=== PATIENT | female | born 1950 | race Caucasian/White ===

== ENCOUNTER 2017-05-01 06:09 | Day surgery (SDC) | payer OTHER ==
[2017-04-30 16:37] VITALS: BMI 35.8
[2017-05-01] MEDS ORDERED: BUPIVACAINE HCL/PF 0.5% (5MG/ML) 10 ML VIAL ONE (07:33)
[2017-05-01] MEDS ORDERED: MIDAZOLAM HCL 2 MG/2 ML SINGLE DOSE VIAL ONE (07:52)
[2017-05-01] MEDS ORDERED: PROPOFOL 20 ML ONE ×2 (08:05→08:18)
[2017-05-01] MEDS ORDERED: KETOROLAC TROMETHAMINE 30 MG/1 ML VIAL ONE (08:15)
[2017-05-01] MEDS ORDERED: DEXAMETHASONE SOD PHOSPHATE 4 MG/1 ML VIAL ONE (08:16)
[2017-05-01] MEDS ORDERED: BUPIVACAINE HCL/PF 0.5% (5MG/ML) 10 ML VIAL IJ ONE (08:18)
[2017-05-01] MEDS ORDERED: LIDOCAINE 2%/EPINEPHRINE 1:100000 (50 ML MD VIAL) INF ONE (08:18)
[2017-05-01] MEDS ORDERED: GLYCOPYRROLATE 0.2 MG/1 ML VIAL ONE (08:27)
[2017-05-01] MEDS ORDERED: PROMETHAZINE HCL 25 MG/1 ML VIAL IVPUSH PRN (08:33)
[2017-05-01] MEDS ORDERED: oxyCODONE HCL 5 MG TABLET PO PRN (08:33)
[2017-05-01] MEDS ORDERED: ONDANSETRON 4 MG/2 ML VIAL IVPUSH PRN (08:33)
[2017-05-01] MEDS ORDERED: LACTATED RINGERS SOLUTION 1,000 ML IV SCH (08:45)
--- NOTE | 2017-05-01 09:07 | OP ---
Operative Note - Note: Operative Date: 05/01/17 Pre-Operative Diagnosis: internal derangement right knee Operation: arthroscopy right knee and partial medial meniscectomy and chondroplasty MFC, patella and trochlea Post-Operative Diagnosis: Same as Pre-op Surgeon: Sabino Boyer [employer] Supervisor: Connor Bai Anesthesia: General Operative Report Dictated: Yes
[2017-05-01 09:43] VITALS: TEMP 97.5
--- NOTE | 2017-05-01 10:02 | HP ---
[facility] - Chief Complaint Chief Complaint: right knee pain - Past Medical History Allergies/Adverse Reactions: Allergies Allergy/AdvReac Type Severity Reaction Status Date / Time No Known Drug Allergies Allergy Verified 05/01/17 06:37 - Current Medications Current Medications: Home Medications Medication Instructions Recorded Bupropion HCl [Forfivo Xl] 450 mg PO DAILY 04/30/17 Escitalopram Oxalate [Lexapro -] 30 mg PO DAILY 04/30/17 [facility] Physical Exam - Physical Examination Vital Signs: Vital Signs Period Temp Pulse Resp BP Sys/Jose Pulse Ox Last 24 Hr 97.5 F-97.6 F 60-89 16-18 114-130/62-79 95-99 Extremities: Other (+ joint line tenderness) [facility] Impression/Plan - Impression/Plan Impression: internal derangement right knee Operative Procedure: arthroscopy right knee Date to be Performed: 05/01/17
--- NOTE | 2017-05-01 10:24 | OP ---
DATE OF OPERATION: 05/01/2017 PREOPERATIVE DIAGNOSIS: Internal derangement, right knee. POSTOPERATIVE DIAGNOSIS: Internal derangement, right knee. PROCEDURE: Arthroscopy, right knee, partial medial meniscectomy, and chondroplasty of the medial femoral condyle, trochlea and patella. SURGICAL ATTENDING: Sabino Rondon MD [employer] REPRESENTATIVE: Connor Bai MD ANESTHESIA: General with LMA. CLOSURE: Nylon 4-0. COMPLICATIONS: None. CONDITION: To the recovery room in stable condition. DESCRIPTION OF PROCEDURE: The patient was taken to the operating room on May 01, 2017. General anesthesia with LMA was administered by the anesthesiologist. The right lower extremity was prepped and draped in the usual sterile fashion. Superolateral and mediolateral outflow portal sites were infiltrated with 1% Xylocaine with epinephrine. The superolateral portal was made with a 15-blade followed by a blunt trocar. The knee was aspirated and inflated with a cocktail of 10 mL of 1% Xylocaine, 10 mL of 0.5% Marcaine and 20 mL of arthroscopic saline. The mediolateral infrapatellar portal was then made with a 15-blade followed by a blunt trocar. The scope was placed in the lateral infrapatellar portal and suprapatellar pouch. The pouch was visualized to be clean. The medial and lateral gutters were visualized to be clean and the surface of the patella and trochlea had extensive degenerative changes. Any loose articular cartilage was debrided using the shaver. With valgus stress on the knee visualized, probed and found to have a complex tear of his posterior horn. This was debrided back to smooth, stable meniscal tissue with a meniscal biter and an arthroscopic shaver. The medial femoral condyle also had some changes essentially that were debrided using the shaver. At 90 degrees, the ACL was visualized, probed and found to be intact. In a [id number] position, the lateral compartment was seen. The lateral meniscus was visualized, probed and found to be intact. Lateral femoral condyle was found to be intact, as was the lateral tibial plateau. The knee was irrigated with copious amounts of irrigation. The portals were closed with 4-0 nylon. Prior to closure, 20 mL of 0.5% Marcaine was infused through the outflow portal for postoperative analgesia. A sterile pressure dressing was placed on the knee. The patient was awakened from anesthesia and transferred to recovery in stable condition. ESTIMATED BLOOD LOSS: Negligible. Connor Bai MD, dictating for Sabino Rondon MD. SABINO RONDON M.D. [id number]
[2017-05-01 13:20] VITALS: BP 119/74; PULSE 76
--- NOTE | 2017-05-02 12:21 | PATH ---
Surgical Pathology Report Patient Name: HECTOR RANDHAWA [facility]. Rec. #: [id number] /Age/Gender: 1950 (Age: 66) / F Account: [id number] Location: [facility] SUR[facility] Taken: 05/01/2017 Received: 05/01/2017 Reported: 05/02/2017 Physicians: Connor Bai M.D. Specimen(s) Received RIGHT KNEE SHAVINGS Clinical History Tear medial meniscus right knee Final Diagnosis KNEE, RIGHT, ARTHROSCOPIC SHAVING: FIBROCARTILAGE WITH MYXOID DEGENERATIVE CHANGES, ALONG WITH PORTIONS OF SYNOVIUM, BONE AND HYALINE CARTILAGE. Electronically Signed German Valencia M.D. Gross Description Received in formalin, labeled "right knee shavings," is a 4.2 x 3.0 x 0.3 cm. aggregate of palacios-yellow soft tissue fragments. A small business sales representative portion is submitted in one cassette. 05/01/201705/01/2017
== END 2017-05-01 12:15 | disposition home or self-care (01) ==
LOC: JASU-SURG 06:09
PROVIDERS: ATTEND Orthopaedic Surgery
PROC: 0SBC4ZZ Excision of Right Knee Joint, Percutaneous Endoscopic Approach (ICD-10-PCS; principal; 2017-05-01 08:00)
DX: M23.321 Other meniscus derangements, posterior horn of medial meniscus, right knee (principal)
CPT/HCPCS: 88304-TC; 94760